=== PATIENT | female | born 1945 | race Caucasian/White ===

== ENCOUNTER 2016-07-05 14:49 | Emergency (ER) | payer MEDICARE, OTHER ==
[~2016-07-05] VITALS: Ht 162.6 cm; Wt 81.8 kg
[2016-07-05 15:07] VITALS: BP 154/81; PULSE 58; RESP 18; O2SAT 100
--- NOTE | 2016-07-05 15:15 | ED.REPORT ---
HPI-Headache Date of Service July 05, 2016 ED Provider: Vanessa Brown MD The patient is a 70 year old female with history of Raynaud's syndrome, depression, and anxiety who was brought to the emergency department by EMS for a frontal headache that began suddenly at 1348 today. The patient states she had a coughing fit around 1345 which was followed by an "explosive" headache. The patient describes the pain as "intense." This severe pain lasted for about 5 minutes and gradually improved over the next hour. Her pain is currently resolved. She is extremely concerned she may be having a stroke. She also mentions dizziness but this is not abnormal for her. She denies weakness, numbness, speech changes, visual changes, chest pain or shortness of breath. She has been off her nifedipine for 2 days due to a medication mixup. The patient reports a prior near syncopal episode in October of last year. She was evaluated and had a full cardiac and neurologic workup that was unremarkable. Nursing Notes Stated Complaint: HEADACHE Chief Complaint: Headache Nursing Notes Reviewed: Yes Allergies: Coded Allergies: amoxicillin (Verified Adverse Reaction, Intermediate, 07/05/16) clavulanic acid (Verified Adverse Reaction, Intermediate, 07/05/16) Uncoded Allergies: BEE STINGS (Allergy, Severe, 07/05/16) General Time Seen by MD: 15:12 Chief Complaint Headache Hx Obtained From: Patient, EMS Arrived By: Ambulance Sudden in Onset?: Yes Onset Occurred: 1 - 4 hours ago Context of Onset: Other (coughing fit) Symptom Duration: 1 - 4 hours Location: : Frontal bilateral: Retro orbital Quality: Painful Severity: Current: No pain currently Severity: Maximum: Severe Associated with: Reports: Vertigo Additional Notes: +anxiety Pertinent Negative: Pt denies other symptoms Recent Healthcare: No recent doctor visit, No recent hospitalization Similar Sx Previous: No Past Medical History Past Medical History Depression Angina Anxiety Raynaud's syndrome Family History Noncontributory Smoking History Unknown if Ever Smoker Social History Other Social History: Good social support, , Local resident Ambulatory Status Independent Review of Systems Neurologic: Reports: Dizziness, Headache, Denies: Focal weakness, Numbness, Slurred speech, Unable to speak, Vision change, Weakness Psychiatric: Reports: Anxiety Complete sys rev & neg: except as marked. Respiratory: Reports: Non-productive cough, Denies: Shortness of breath Cardiovascular: Denies: Chest pain Physical Exam Initial Vital Signs Vital Signs (First) Date Time Temp Pulse Resp B/P Pulse Ox O2 Delivery O2 Flow Rate FiO2 07/05/16 15:07 36.7 58 18 154/81 100 Room Air Initial VS: Reviewed ENT: Mucous membranes moist, Conjunctiva normal, No scleral icterus Respiratory: Breath sounds normal, Clear to auscultation, No respiratory distress Cardiovascular: Regular rate & rhythm, Heart sounds normal, Intact distal pulses Abdomen / GI: Soft, Non-tender, No guarding, No rebound, No distention Lymphatic: No lymphadenopathy Extremities: Vascular intact, Neuro intact, No swelling, No tenderness Skin: Warm, Dry, No cyanosis Psychiatric: Mood/affect normal, Behavior normal, Normal thought content General/Constitutional: Awake, Alert Head / Eyes: Atraumatic, Normocephalic, PERRL, EOMI, No nystagmus, No photophobia, Conjunctiva NL, Temporal arteries NL Neck: Atraumatic, Supple, No meningismus, Full range of motion, No swelling, Non-tender, No masses Neurologic: Oriented X3, Speech NL, No motor deficits, No sensory deficits, CN II - XII intact, Cerebellar NL, Memory NL Interpretation & Diagnostics Lab Results Interpretation Result Diagram: 07/05/16 1615 07/05/16 1615 Test 07/05/16 16:15 07/05/16 16:37 White Blood Count 7.5th/mm3 (3.8-10.1) Red Blood Count 4.83mil/mm3 (3.90-5.20) Hemoglobin 16.7g/dL (12.0-15.6) Hematocrit 49.2% (35.0-46.0) Mean Corpuscular Volume 101.9fL (81-100) Mean Corpuscular Hemoglobin 34.6pg (27.0-35.0) Mean Corpuscular Hemoglobin Concent 33.9% (32.0-37.0) Red Cell Distribution Width 13.9% (12.3-15.4) Platelet Count 254bil/L (150-400) Neutrophils (%) (Auto) 66.7% (40-74) Lymphocytes (%) (Auto) 18.4% (14-46) Monocytes (%) (Auto) 14.0% (4-12) Eosinophils (%) (Auto) 0.5% (0-5) Basophils (%) (Auto) 0.3% (0-3) Sodium Level 141mEq/L (134-144) Potassium Level 3.8mEq/L (3.5-5.2) Chloride Level 102mEq/L (97-108) Carbon Dioxide Level 18mmol/L (18-29) Blood Urea Nitrogen 8mg/dL (8-27) Creatinine 0.55mg/dL (0.57-1.00) Estimat Glomerular Filtration Rate 156mL/min (>59) Glucose Level 110mg/dL (60-99) Calcium Level 9.8mg/dL (8.5-10.1) Magnesium Level 1.6mg/dL (1.6-2.6) Total Bilirubin 0.9mg/dL (0.0-1.2) Aspartate Amino Transf (AST/SGOT) 32U/L (0-50) Alanine Aminotransferase (ALT/SGPT) 17U/L (0-32) Alkaline Phosphatase 94U/L (25-165) Total Protein 7.8g/dL (6.4-8.4) Albumin 4.0g/dL (3.4-5.0) Hold Sr Top Tube Received (Received) Hold Urine Received (Received) ECG Interpretation ECG Interpretation: Sinus rhythm with a rate of 72 Ventricular trigeminy Old inferior infarct Time: 16:09 Interpreted by: ED physician Re-Eval/Medical Decision Med Decision/Clinical Course The patient reports a near syncopal episode in October of last year. She was evaluated and had a full cardiac and neurologic workup that was unremarkable. Source of Hx: Old records, EMS Re-Evaluation/Progress #1: Time of Eval: 16:19 Re-Evaluation/Progress Note: Rechecked the patient. Discussed exam findings and plan. Re-Evaluation/Progress #2: Time of Eval: 17:14 Re-Evaluation/Progress Note: Rechecked the patient. Discussed lab results, diagnosis, and plan for discharge. All questions were addressed. Counseled Regarding: Diagnosis, Lab results, Need for follow-up, When/why to return to ED Discharge & Departure Impression: Primary Impression: Headache Headache type: unspecified Headache chronicity pattern: unspecified pattern Intractability: not intractable Qualified Code: R51 - Headache Disposition: Home Discharge Condition All VS Reviewed: Yes Condition: Stable Patient Instructions: Acute Headache (ED) Additional Instructions: Thank you for entrusting us with your care today. You had some sort of acute headache today that has seemed to resolved. Your exam findings and workup today are reassuring. There is no evidence of an acute stroke or intracranial bleed. There is no reason at this time to do a CT scan. Your headache is gone, you are completely neurologically intact, and you have not recently injured your head. Please return to the emergency department if you develop speech changes, visual changes, weakness, numbness, or any other new or concerning symptoms. Scribe Attestation Portions of this note were transcribed by Balbina Hernandez. I, Dr. Brown, personally performed the history, physical exam and medical decision-making; I reviewed and confirmed the accuracy of the information in the transcribed note. Signed by: Sally Rasheed, 07/05/2016 and [id number]. Vanessa Brown MD July 05, 2016 15:15 Balbina Hernandez July 05, 2016 15:39
[2016-07-05 16:23] VITALS: BP 160/85; PULSE 74; O2SAT 100
[2016-07-05 16:26] LABS: BASOPHILS % (AUTO) 0.3 % (0-3); EOSINOPHILS % (AUTO) 0.5 % (0-5); Mean Corpuscular Hemoglobin 34.6 pg (27.0-35.0); Mean Corpuscular Volume 101.9 fL (81-100); NEUTROPHILS % (AUTO) 66.7 % (40-74); Platelet Count 254 bil/L (150-400)
[2016-07-05 16:47] LABS: Magnesium 1.6 mg/dL (1.6-2.6)
[2016-07-05 17:09] VITALS: BP 151/92; PULSE 66; O2SAT 100
[2016-07-05 18:03] VITALS: BP 160/77; PULSE 79; O2SAT 100
[2016-07-05 18:11] VITALS: BP 160/77; PULSE 79; O2SAT 100
== END 2016-07-05 16:23 | disposition home or self-care (01) ==
LOC: SED 14:49 → EDBD 14:49 → SED 16:23
DX: R51 Headache (principal); I73.00 Raynaud's syndrome without gangrene; Z88.1 Allergy status to other antibiotic agents; Z88.8 Allergy status to other drugs, medicaments and biological substances; Z91.030 Bee allergy status